=== PATIENT | female | born 1990 | race Caucasian/White ===

== ENCOUNTER 2017-06-26 18:32 | Emergency (ER) | payer OTHER ==
[2017-06-26 18:39] VITALS: TEMP 98.4
[2017-06-26] MEDS ORDERED: CYCLOBENZAPRINE 10 MG TAB PO ONE (19:07)
[2017-06-26] MEDS ORDERED: KETOROLAC 30 MG/1 ML SDV IVP ONE (19:07)
[2017-06-26] MEDS ORDERED: NS 1,000 ML IV ONE (19:07)
[2017-06-26] MEDS ORDERED: BENZONATATE 100 MG CAP PO ONE (19:07)
--- NOTE | 2017-06-26 19:08 | EDPHY ---
H & P Stated Complaint: Body aches, SOB, chest tightness and fevers for 48 hours. Time Seen by Provider: 06/26/17 19:08 HPI/ROS: HPI: This is a 26-year-old female who presents with Chief Complaint: Body aches, chest tightness and fevers for 48 hours. Location: Body Quality: Aches Duration: 2 weeks Signs and Symptoms: Positive fever over the last 36 hr, positive fatigue, positive nonproductive cough, positive chills, no sore throat, no chest pain, no palpitations, shortness of breath Timing: Worsening over the last 2 days Severity: Moderate Context: Patient reports that she is returning home to [place] this weekend and she is concerned as she has family members that have chronic medical problems. She reports over the last 36 hr she has developed temperatures ranging between 100-101 degrees F accompanied by body aches, fatigue, and nonproductive cough. Her appetite is diminished but she is still trying to drink fluids. Did not receive her influenza vaccine this year. LMP 22-28 days ago. No history of lung disease. She took Tylenol 30 min prior to arrival. Denies neck stiffness/ headache. Modifying Factors: Tylenol Comment: ROS: see HPI Constitutional: No fever, no chills, no weight loss Eyes: No blurred vision Respiratory: No shortness of breath, no cough Cardiovascular: No chest pain Gastrointestinal: No nausea, no vomiting, no diarrhea Genitourinary: No dysuria Extremities: No myalgias Neurologic: No weakness, no numbness Skin: No rashes Hematologic: No bruising, no bleeding MEDICAL/SURGICAL/SOCIAL HISTORY: Medical history: Generally healthy. Does not take any regular medications. Surgical history: Denies Social history: Employed. CONSTITUTIONAL: Very pleasant tearful adult white female, awake and alert, no obvious distress HEENT: Atraumatic and normocephalic, PERRL, EOMI. Tympanic membranes clear. Oropharynx clear, no exudate and moist pink mucosa. Airway patent. No lymphadenopathy. No meningismus. Cardiovascular: Normal S1/S2, mild tachycardia, regular rhythm, without murmur rub or gallop. PULMONARY/CHEST: Symmetrical and nontender. Clear to auscultation bilaterally. Good air movement. No accessory muscle usage. ABDOMEN: Soft, nondistended, nontender, no rebound, no guarding, no peritoneal signs, no masses or organomegaly. No CVAT. EXTREMITIES: 2/2 pulses, strength 5/5, no deformities, no clubbing, no cyanosis or edema. NEUROLOGICAL: no focal neuro deficits. GCS 15. SKIN: Warm and dry, no erythema. no rash. Good capillary refill. Source: Patient Exam Limitations: No limitations - Personal History LMP (Females 10-55): 22-28 Days Ago Current Tetanus Diphtheria and Acellular Pertussis (TDAP): No - Medical/Surgical History Hx Asthma: No Hx Chronic Respiratory Disease: No Hx Diabetes: No Hx Cardiac Disease: No Hx Renal Disease: No Hx Cirrhosis: No Hx Alcoholism: No Hx HIV/AIDS: No Hx Splenectomy or Spleen Trauma: No Other PMH: Denies - Social History Smoking Status: Never smoked Constitutional: Initial Vital Signs Temperature (C) 36.9 C 06/26/17 18:35 Heart Rate 106 H 06/26/17 18:35 Respiratory Rate 18 06/26/17 18:35 Blood Pressure 128/79 H 06/26/17 18:35 O2 Sat (%) 98 06/26/17 18:35 O2 Delivery Mode Room Air Allergies/Adverse Reactions: gluten Allergy (Verified 06/26/17 18:40) Home Medications: Medication Instructions Recorded Codeine Phosphate/Guaifenesin 10 ml PO Q4 #120 liquid 06/26/17 [Guaifen-Codeine 200-20 mg/10Ml] Oseltamivir Phosphate [Tamiflu 75 75 mg PO BID #9 cap 06/26/17 mg (*)] Welchol 06/26/17 Medical Decision Making - Diagnostics Imaging Results: Imaging Impressions Chest X-Ray 06/26/17 19:07 Impression: Features consistent with reactive airways' disease and/or virally- mediated bronchitis, with no focal infiltrate. ED Course/Re-evaluation: Labs, chest x-ray, IV fluids and IV/PO medications ordered Patient given 1 L normal saline, IV Toradol 30 mg, PO Flexeril with adequate relief Chest x-ray my read shows findings consistent with bronchitis/reactive airway disease, no effusion/opacity/wide mediastinum/Pneumothorax Influenza A positive; symptoms times 36 hr; candidate for Tamiflu Advised supportive care This patient was seen under the supervision of my primary supervising physician. I evaluated care for this patient independently. Discussed this patient with Dr. Navas who did not see the patient. Differential Diagnosis: Adult fever including but not limited to viral syndromes including influenza, bronchitis, pneumonia and sepsis. - Data Points Laboratory Results: 06/26/17 19:52 Nasal Influenza A PCR FLU A DETECTED H (NEGATIVE) Nasal Influenza B PCR NEGATIVE FOR FLU B (NEGATIVE) Medications Given: Discontinued Medications Benzonatate (Tessalon Pearles) 200 mg PO EDNOW ONE Stop: 06/26/17 19:08 Last Admin: 06/26/17 19:15 Dose: 200 mg Cyclobenzaprine HCl (Flexeril) 10 mg PO EDNOW ONE Stop: 06/26/17 19:08 Last Admin: 06/26/17 19:15 Dose: 10 mg Sodium Chloride (Ns) 1,000 mls @ 0 mls/hr IV EDNOW ONE; Wide Open PRN Reason: Protocol Stop: 06/26/17 19:08 Last Admin: 06/26/17 19:14 Dose: 1,000 mls Ketorolac Tromethamine (Toradol) 30 mg IVP EDNOW ONE Stop: 06/26/17 19:08 Last Admin: 06/26/17 19:14 Dose: 30 mg Oseltamivir Phosphate (Tamiflu) 75 mg PO EDNOW ONE Stop: 06/26/17 20:39 Last Admin: 06/26/17 20:46 Dose: 75 mg Departure - Departure Disposition: Home, Routine, Self-Care Clinical Impression: Influenza A Condition: Good Instructions: Influenza (ED) Additional Instructions: Please rest as much as possible over the next few days. Drink plenty of fluids to prevent dehydration. Take all medications as prescribed until complete. Referrals: [facility],. [Clinic] - As per Instructions Prescriptions: Codeine Phosphate/Guaifenesin [Guaifen-Codeine 200-20 mg/10Ml] 10 ml PO Q4 #120 liquid Oseltamivir Phosphate [Tamiflu 75 mg (*)] 75 mg PO BID #9 cap
[2017-06-26 20:01] VITALS: RESP 16
[2017-06-26 20:37] LABS: PRINT OR CALL CRITICALS TECH CALL
[2017-06-26] MEDS ORDERED: OSELTAMIVIR PHOSPHATE 75 MG CAP PO ONE (20:38)
[2017-06-26 20:51] VITALS: BP 116/67; PULSE 92; O2SAT 98
== END 2017-06-26 20:50 | disposition home or self-care (01) ==
DX: J10.1 Influenza due to other identified influenza virus with other respiratory manifestations (principal); E86.9 Volume depletion, unspecified
CPT/HCPCS: 96374; J1885